=== PATIENT | female | born 2000 | race Hispanic/Latino ===

== ENCOUNTER 2024-02-17 08:50 | Emergency (ER) | payer OTHER ==
[~2024-02-17] VITALS: Ht 157.5 cm; Wt 117.9 kg
[2024-02-17 08:52] VITALS: PULSE 91; RESP 18; TEMP 98.3; O2SAT 98
[2024-02-17] MEDS ORDERED: AMOXICILLIN500 MG PO (09:00)
== END 2024-02-17 09:09 | disposition home or self-care (01) ==
LOC: ER 08:57
DX: R50.9 Fever, unspecified (principal); J02.0 Streptococcal pharyngitis
CPT/HCPCS: 99283